=== PATIENT | male | born 1970 | race Hispanic/Latino ===

== ENCOUNTER 2016-08-30 13:52 | Outpatient (CLI) | payer OTHER ==
[2016-08-30 15:06] LABS: PLATELET COUNT 285 K/uL (142-355)
[2016-08-30 16:02] LABS: POTASSIUM 4.1 mmol/L (3.6-5.2)
== END 2016-08-30 23:46 | disposition home or self-care (01) ==
LOC: LABW 13:52
PROVIDERS: Nurse Practitioner
DX: R10.11 Right upper quadrant pain (principal); R10.13 Epigastric pain; R10.12 Left upper quadrant pain
CPT/HCPCS: 36415; 80053; 82150; 83690; 85027; 85651; 86141; 86318